=== PATIENT | male | born 1935 | race Caucasian/White ===

== ENCOUNTER 2016-11-07 12:59 | Emergency (ER) | payer MEDICARE ==
[2016-11-07] MEDS ORDERED: DUONEB INH ONE (14:35)
[2016-11-07] MEDS ORDERED: NEB-ALBUTEROL 2.5 MG/3 ML INH ONE (14:36)
[2016-11-07] MEDS ORDERED: PREDNISONE 50 MG TAB ONE (14:45)
== END 2016-11-07 16:30 | disposition home or self-care (01) ==
LOC: ER 12:59
DX: J44.0 Chronic obstructive pulmonary disease with (acute) lower respiratory infection (principal); J20.9 Acute bronchitis, unspecified; J44.1 Chronic obstructive pulmonary disease with (acute) exacerbation; Z87.891 Personal history of nicotine dependence
CPT/HCPCS: 71020; 94640; 99283; J7512